=== PATIENT | female | born 1950 | race Caucasian/White ===

== ENCOUNTER → 2023-11-30 09:10 | Outpatient (REF) | payer MEDICARE, OTHER, SELFPAY | LOC: RAD 09:10 | PROVIDERS: ATTENDING PHYSICIAN Surgery Vascular Surgery; FAMILY PHYSICIAN Family Medicine | DX: I73.9 Peripheral vascular disease, unspecified (principal) | CPT/HCPCS: 93922; 93925 ==

== ENCOUNTER → 2024-03-09 06:09 | Outpatient (REF) | payer MEDICARE, OTHER, SELFPAY ==
[2024-03-09 10:29] LABS: % Basophils 0.7 % (0-2); % Eosinophils 0.4 % (0-6); % Immature Granulocytes 0.1 % (0-0.5); % Lymphocytes 35.1 % (20.5-51.1); % Monocytes 6.2 % (1.7-9.3); % Neutrophils 57.5 % (42.2-75.2); Absolute Basophils 0.1 10^3/uL (0-0.2); Absolute Lymphocytes 2.6 10^3/uL (1.2-3.4); Absolute Monocytes 0.5 10^3/uL (0.1-0.6); Absolute Neutrophils 4.3 10^3/uL (1.4-6.5); Hemoglobin 13.5 g/dL (12.0-16.0); Mean Corp Hgb Conc. 32.1 g/dL (33.0-37.0); Mean Corpuscular Hgb 30.5 pg (27.0-31.0); Mean Platelet Volume 9.8 fL (7.4-10.4); Nucleated Red Blood Cells % 0 %; Platelet Count 286 10^3/uL (130-400); Red Blood Cell Count 4.42 10^6/uL (4.20-5.40); Red Cell Dist. Width 12.7 % (11.5-14.5); White Blood Cell Count 7.5 10^3/uL (4.8-10.8)
[2024-03-09 10:50] LABS: ALT (SGPT) 21 U/L (0-35); AST (SGOT) 23 U/L (14-36); Albumin 3.8 g/dl (3.5-5.0); Alkaline Phosphatase 116 U/L (38-126); Blood Urea Nitrogen 19 mg/dl (7-17); Calcium 9.3 mg/dl (8.4-10.2); Carbon Dioxide 25 mmol/L (22-30); Chloride 108 mmol/L (98-107); Glucose 96 mg/dl (70-99); HDL Cholesterol 45 mg/dl; Potassium 4.5 mmol/L (3.5-5.1); Sodium 141 mmol/L (135-145); Total Bilirubin 0.4 mg/dl (0.2-1.3); Total Protein 6.5 g/dl (6.3-8.2); eGFR 59.86
[2024-03-09 11:01] LABS: LDL Cholesterol, Calculated 44 mg/dl; Total Cholesterol 99 mg/dl (50-199); Triglyceride 51 mg/dl (10-149); Very Low Density Lipoprotein 10 mg/dl (0-30)
[2024-03-09 11:08] LABS: TSH Reflex To Free T4 2.51 uIU/ml (0.47-4.68)
[2024-03-09 13:20] LABS: Glycohemoglobin (HgbA1c) 5.4 % (4.0-5.6)
== END ==
LOC: HWLAB 06:09
PROVIDERS: ATTENDING PHYSICIAN Internal Medicine; FAMILY PHYSICIAN Family Medicine
DX: I48.0 Paroxysmal atrial fibrillation (principal); I70.209 Unspecified atherosclerosis of native arteries of extremities, unspecified extremity; I51.3 Intracardiac thrombosis, not elsewhere classified
CPT/HCPCS: 36415; 80053; 80061; 83036; 84443; 85025

== ENCOUNTER 2024-03-20 07:53 | Inpatient (IN) | payer MEDICARE, OTHER, SELFPAY ==
[2024-03-20 08:12] VITALS: BP 142/74; BMI 26.3
[2024-03-20 08:29] VITALS: BMI 26.3
--- NOTE | 2024-03-20 09:22 | W.PN.CD ---
Addendum entered and electronically signed by Manohar Silver MD 03/20/24 17:27:
I saw and examined the patient.
The RECEPTIONIST TELEPHONE OPERATOR's note was reviewed and I agree with the note.
Comment: Here for planned dofetilide. Will not continue Dilt given drug drug interaction and try Metoprolol ER 25 a day and watch her tolerance (COPD). Follow dofetilide protocol.
Original Note:
Today's Communication / Plan
-
Dofetilide loading per protocol after EKG
Impression / Plan
-
Background: 73F with paroxysmal atrial fibrillation status post cardioversion with early recurrence and subsequent ablation (08/2022), hypertension, dyslipidemia, mild to moderate tricuspid regurgitation, PAD s/p LLE thrombectomy for SFA occlusion
(03/2022), and COPD presents for dofetilide loading
Manager Embalmer Funeral Director: Dr. Donato
Paroxysmal atrial fibrillation
-Status post ablation 08/04/2022
-Currently in sinus
-Oral Anticoagulation: Apixaban 5 mg twice daily, she denies missed doses and abnormal bleeding
-[id number]: Score at least 4 (HTN, Vascular disease, age 65-74, female gender)
-Obtain baseline EKG, initiate dofetilide per protocol, QTc requires intensive monitoring
Hypertension, follow with changes in medical therapy
Dyslipidemia, continue atorvastatin
Mild to moderate tricuspid regurgitation, update echocardiogram in the outpatient setting after dofetilide loading
PAD
COPD
Former smoker, continued cessation recommended
Physical Exam
Vital Signs/Labs
Vital Signs
Temp Pulse Resp BP Pulse Ox
97.5 F 83 18 142/74 100
03/20/24 08:12 03/20/24 08:12 03/20/24 08:12 03/20/24 08:12 03/20/24 08:12
03/19/24 03/20/24 03/21/24
06:59 06:59 06:59
Actual Weight 73.9 kg
Physical Exam
Constitutional: No acute distress and Comfortable
EENT: Anicteric and Moist mucous membranes
Cardiovascular: Rhythm & rate is regular and S1S2 is normal
Respiratory: Respiratory effort normal and Lungs clear to auscul.
GI: Soft, Distention absent, Flat, Non tender and Normal bowel sounds
Neuro/Psych: AO x 3
Other: Skin (Warm and dry without edema)
Data Reviewed
-
Date of Service: March 20, 2024
EKG: Report Reviewed by me
Medical Tests (PFT, Pathology etc): Report Reviewed by me
Labs: Labs Reviewed by me
Old Records: Reviewed
--- NOTE | 2024-03-20 09:28 | W.CARD.TIKOS ---
Initiate Tikosyn
-
I verify that the patient has not taken any verapamil (Isoptin/Calan), ketoconazole (Nizoral), cimetidine (Tagamet), trimethoprim (Trimpex), trimethoprim/sulfamethoxazole (Bactrim), megesterol (Megace), prochlorperazine (Compazine),
hydrochlorothiazide (HCTZ), dolutegravir (Tivicay) or any Class I or Class III anti-arrhythmic within the last three days
AND
I verify that the patient has not taken amiodarone within the last THREE months, or that the patient's amiodarone plasma concentration is <0.3 mcg/mL.
Baseline QTc (in msec): 438
QTc interval is greater than 440msec without conduction abnormality OR greater than 500msec with a conduction abnormality, but acceptable to proceed per Cardiology attending.
Ordering Physician: Norberto Donato
[2024-03-20] MEDS: TIKOSYN 250 MCG PO ×2 (11:40→23:06)
[2024-03-20 11:56] VITALS: BP 128/64
--- NOTE | 2024-03-20 12:06 | CM ---
Reviewed chart. Met with Mrs. Lenz to review discharge plans. She states prior to admission she resides with her spouse in a one story home with one step to enter. She states prior to admission she was independent with ambulation and adls. She
states she does not have any DME in the home. She states she has a prescription plan and uses [facility]. Telephone call to Bill Guo ([phone]) to check on co-pay for Dofetilide 250 mcg bid. Her co-pay for one month would be $192.00 and for
three months her co-pay would be $385.11. She has a deductible that has to be met. She can use the Good Rx. Coupon at [facility] for $29.13 a month. Will review with her. Medical work-up in progress. The discharge plan is to return home with her spouse
when medically stable.
--- NOTE | 2024-03-20 12:25 | CM ---
Reviewed chart. Met with Mrs. Lenz to review discharge plans. She states prior to admission she resides with her spouse in a one story home with one step to enter. She states prior to admission she was independent with ambulation and adls. She
states she georges not have any DME in the home. She states she has a prescription plan with Bill Guo and uses [facility]. Telephone call to Bill Guo, ([phone]) to check on co-pay for Dofetilide 250 mcg bid. Her co-pay for a month is $192.00
and for three months mail order is $385.11. She has a deductible that has to be met. She can use the Good Rx, Coupon and her co-pay would be $29.13. a month. Will review with her and check if [facility] has it in stock. Will need a three
script to be sent to [facility] for it to go home with her. Medical work-up in progress. The discharge plan is to return home with her spouse when medically stable.
--- NOTE | 2024-03-20 15:09 | PTCARENOTE ---
Pt received first dose Tikosyn. EKG completed prior to first dose and 2hrs following second dose. Pt ambulating independently around unit. Pt remains SR with HR 60's. BP 128/64 MAP 83. Pulse oximetry 97% on room air.
[2024-03-20 16:16] VITALS: BP 122/61
[2024-03-20] MEDS: TOPROL XL PO (18:00)
[2024-03-20] MEDS: LIPITOR 40 MG PO (18:16)
[2024-03-20 18:37] VITALS: BP 113/67
[2024-03-20 19:39] LABS: Hepatitis C Antibody Negative (Negative)
[2024-03-20] MEDS: ELIQUIS 5 MG PO (19:41)
[2024-03-20 23:09] VITALS: BP 125/68
--- NOTE | 2024-03-21 01:16 | PTCARENOTE ---
Pt received at start of shift, HR SR. Pt OOB walking halls w/ daughter. Updated pt and daughter on plan of care, pt states no questions at this time. Tikosyn dose #2 administered, EKG 2h later: QTc -489. Pt denies any SOb orlightheadedness/dizziness
at this time. Informed to notify RN if any changes. Call carpenter within reach.
[2024-03-21 05:27] VITALS: BP 122/106
[2024-03-21 05:39] VITALS: BMI 26.0
[2024-03-21 07:00] VITALS: BP 132/74
[2024-03-21] MEDS: ELIQUIS 5 MG PO ×2 (07:46→19:12)
[2024-03-21] MEDS: LOW STRENGTH ASPIRIN 81 MG PO (07:46)
[2024-03-21] MEDS: OSCAL 500 + D 1200 MG PO (07:46)
--- NOTE | 2024-03-21 09:09 | W.PN.CD ---
Today's Communication / Plan
-
- Continue Tikosyn loading at a lower dose.
Impression / Plan
-
Background: 73F with paroxysmal atrial fibrillation status post cardioversion with early recurrence and subsequent ablation (08/2022), hypertension, dyslipidemia, mild to moderate tricuspid regurgitation, PAD s/p LLE thrombectomy for SFA occlusion
(03/2022), and COPD presents for dofetilide loading
Shuttle Veneering Supervisor: Dr. Donato
Paroxysmal atrial fibrillation
-Status post ablation 08/04/2022
-Currently in sinus
-Oral Anticoagulation: Apixaban 5 mg twice daily, she denies missed doses and abnormal bleeding
-[id number]: Score at least 4 (HTN, Vascular disease, age 65-74, female gender)
-Obtain baseline EKG, initiate dofetilide per protocol, QTc requires intensive monitoring
Bradycardia
-discontinued Dilt with initiation of Tikosyn
- Low dose toprol started. - still bradycardiac - hold unless needed.
Hypertension, follow with changes in medical therapy
Dyslipidemia, continue atorvastatin
Mild to moderate tricuspid regurgitation, update echocardiogram in the outpatient setting after dofetilide loading
PAD
COPD
Former smoker, continued cessation recommended
Physical Exam
Vital Signs/Labs
Vital Signs
Temp Pulse Resp BP Pulse Ox
97.6 F 78 14 132/74 97
03/21/24 06:59 03/21/24 07:45 03/21/24 06:59 03/21/24 07:00 03/21/24 07:00
03/20/24 03/21/24 03/22/24
06:59 06:59 06:59
Actual Weight 73.1 kg
Physical Exam
Constitutional: No acute distress and Comfortable
EENT: Anicteric and Moist mucous membranes
Cardiovascular: Rhythm & rate is regular, Pedal edema is absent and JVD pressure is normal
Respiratory: Respiratory effort normal, Lungs clear to auscul., Wheeze Absent and Crackles Absent
GI: Soft, Non tender and Normal bowel sounds
Neuro/Psych: Alert, Oriented and AO x 3
Data Reviewed
-
Date of Service: March 21, 2024
Medical Decision Making: Reviewed Test Results, Independent Historian Assessment and Test Interpretation
EKG: Tracing Personally Visualized and interpreted
Echo: Report Reviewed by me
Labs: Labs Reviewed by me
Old Records: Reviewed
[2024-03-21] MEDS: TIKOSYN 250 MCG PO ×2 (10:06→21:09)
[2024-03-21 12:06] VITALS: BP 139/71
--- NOTE | 2024-03-21 12:19 | PTCARENOTE ---
Pt received 3rd dose of Tikosyn, EKG completed 2hrs following. QTc 471. Pt ambulating in jung independently. Pt remains SR with HR 60's-70's. BP 139/71 MAP 90. Pulse oximetry 98% on room air.
--- NOTE | 2024-03-21 12:38 | CM ---
Reviewed chart. Met with and Mrs. Lenz to review discharge plans. Reviewed co-pays with her insurance of $192.00 a month and $385.11 for three month. Also reviewed Good RX coupon at [facility] would be $29.00 a month. Gave her the good Rx coupon.
Telephone call to [facility] to see if Dofetilide 250 m[address] stock[address] [facility] has it in stock. She will need a three day script of Dofetilide to go to [facility] so a three supply can go home with her. Prior to admission she resides with
her spouse in a one story home with one step to enter. Prior to admission she was independent with ambulation and adls. She does not have any DME in the home. Medical work-up in progress. The discharge plan is to return home with her spouse when
medically stable.
[2024-03-21 15:10] VITALS: BP 122/63
[2024-03-21] MEDS: TOPROL XL 25 MG PO (16:54)
[2024-03-21] MEDS: LIPITOR 40 MG PO (16:54)
[2024-03-21 19:17] VITALS: BP 131/75
[2024-03-21 23:05] VITALS: BP 129/70
--- NOTE | 2024-03-21 23:13 | PTCARENOTE ---
Pt received start of shift HR SR w/ PACs. Tikosyn dose #4 given, QTc 499. Pt denies any SOB, CP, lightheadedness, or dizziness at this time. Informed to notify RN if any changes, call carpenter within reach.
[2024-03-22] VITALS (8 sets, daily range): BP systolic 113–165; BP diastolic 64–82; BMI 26.1
--- NOTE | 2024-03-22 08:05 | W.PN.CD ---
Today's Communication / Plan
-
- Continue loading
- Likely discharge in AM
Impression / Plan
-
Background: 73F with paroxysmal atrial fibrillation status post cardioversion with early recurrence and subsequent ablation (08/2022), hypertension, dyslipidemia, mild to moderate tricuspid regurgitation, PAD s/p LLE thrombectomy for SFA occlusion
(03/2022), and COPD presents for dofetilide loading
Spring Machine Operator: Dr. Donato
Paroxysmal atrial fibrillation
-Status post ablation 08/04/2022
-Currently in sinus
-Oral Anticoagulation: Apixaban 5 mg twice daily, she denies missed doses and abnormal bleeding
-[id number]: Score at least 4 (HTN, Vascular disease, age 65-74, female gender)
-Obtain baseline EKG, initiate dofetilide per protocol, QTc requires intensive monitoring
-QTc is 490s this AM - dose # 5 this AM
- With borderline QTc, would like to wait for one more day to evaluate.
- Continue 250 mcg q12h
Bradycardia
-discontinued Dilt with initiation of Tikosyn
- Low dose toprol started. - still bradycardiac - hold unless needed.
Hypertension, follow with changes in medical therapy
Dyslipidemia, continue atorvastatin
Mild to moderate tricuspid regurgitation, update echocardiogram in the outpatient setting after dofetilide loading
PAD
COPD
Former smoker, continued cessation recommended
Physical Exam
Vital Signs/Labs
Vital Signs
Temp Pulse Resp BP Pulse Ox
97.7 F 72 16 127/64 97
03/22/24 06:57 03/22/24 07:00 03/22/24 06:57 03/22/24 06:58 03/22/24 06:57
03/21/24 03/22/24 03/23/24
06:59 06:59 06:59
Actual Weight 73.1 kg 73.2 kg
Physical Exam
Constitutional: No acute distress and Comfortable
EENT: Anicteric and Moist mucous membranes
Cardiovascular: Rhythm & rate is regular, Pedal edema is absent and JVD pressure is normal
Respiratory: Respiratory effort normal, Lungs clear to auscul. and Wheeze Absent
GI: Soft, Non tender and Normal bowel sounds
Neuro/Psych: Alert, Oriented and AO x 3
Data Reviewed
-
Date of Service: March 22, 2024
Medical Decision Making: Reviewed Test Results, Test Interpretation and Review of Case with other Provider
EKG: Tracing Personally Visualized and interpreted
Echo: Report Reviewed by me
Labs: Labs Reviewed by me
Old Records: Reviewed
[2024-03-22] MEDS: ELIQUIS 5 MG PO ×2 (08:31→20:05)
[2024-03-22] MEDS: LOW STRENGTH ASPIRIN 81 MG PO (08:32)
[2024-03-22] MEDS: FLUSH (NSS) 1 FLUSH IV (08:33)
[2024-03-22] MEDS: TIKOSYN 250 MCG PO ×2 (08:33→20:06)
[2024-03-22] MEDS: OSCAL 500 + D 1000 MG PO (09:18)
[2024-03-22] MEDS: OSCAL 500 + D PO (09:18)
--- NOTE | 2024-03-22 10:28 | PTCARENOTE ---
Received patient this morning resting in bed, remains in SR on the monitor. Patient worried that QTc was 499 last night, seen by Dr. Rehman and plan is to watch overnight. Given 5th dose of tikosyn, will check EKG 2 hours post dose.
--- NOTE | 2024-03-22 13:33 | CM ---
Reviewed chart. Met with Mrs. Lenz to review discharge plans. She states she is feeling well and maybe able to go home. We reviewed that we give her a three day supply of Dofetilide to take home with her. Will need to send a script to [facility] for the mediation. Prior to admission she resides with her spouse in one story home with one step to enter. Prior to admission she was independent with ambulation and adls. She georges not have any DME in the home. We reviewed using the Good
RX coupon for her Dofetilide. She has the coupon. Medical work-up in progress. The discharge plan is to return home with her spouse when medically stable.
[2024-03-22] MEDS: LIPITOR 40 MG PO (18:38)
[2024-03-22] MEDS: TOPROL XL 25 MG PO (18:40)
--- NOTE | 2024-03-22 22:16 | PTCARENOTE ---
Pt received at start of shift, HR SR w/ PACs. Pt OOB walking the halls. Once back in room, discussed plan of care w/ pt. Pt states no questions at this time. Tikosyn dose #6 given, QTc 529. Call carpenter within reach.
[2024-03-23 04:38] VITALS: BP 130/70
[2024-03-23 04:40] VITALS: BMI 25.9
[2024-03-23 07:17] VITALS: BP 127/69
[2024-03-23] MEDS: TIKOSYN 250 MCG PO (08:06)
[2024-03-23] MEDS: OSCAL 500 + D 1000 MG PO (08:07)
[2024-03-23] MEDS: ELIQUIS 5 MG PO (08:07)
[2024-03-23] MEDS: LOW STRENGTH ASPIRIN 81 MG PO (08:07)
--- NOTE | 2024-03-23 08:09 | W.PN.CD ---
Today's Communication / Plan
-
- Discharge home
Impression / Plan
-
Background: 73F with paroxysmal atrial fibrillation status post cardioversion with early recurrence and subsequent ablation (08/2022), hypertension, dyslipidemia, mild to moderate tricuspid regurgitation, PAD s/p LLE thrombectomy for SFA occlusion
(03/2022), and COPD presents for dofetilide loading
Community Engagement Representative: Dr. Donato
Paroxysmal atrial fibrillation
-Status post ablation 08/04/2022
-Currently in sinus
-Oral Anticoagulation: Apixaban 5 mg twice daily, she denies missed doses and abnormal bleeding
-[id number]: Score at least 4 (HTN, Vascular disease, age 65-74, female gender)
-Obtain baseline EKG, initiate dofetilide per protocol, QTc requires intensive monitoring
-QTc is 480s this AM - dose # 7 this AM
- Continue 250 mcg q12h
- stable for discharge
Bradycardia
-discontinued Dilt with initiation of Tikosyn
- Low dose toprol started. - still bradycardiac - hold unless needed.
Hypertension, follow with changes in medical therapy
Dyslipidemia, continue atorvastatin
Mild to moderate tricuspid regurgitation, update echocardiogram in the outpatient setting after dofetilide loading
PAD
COPD
Former smoker, continued cessation recommended
Physical Exam
Vital Signs/Labs
Vital Signs
Temp Pulse Resp BP Pulse Ox
98.5 F 73 20 127/69 97
03/23/24 07:17 03/23/24 07:30 03/23/24 07:17 03/23/24 07:17 03/23/24 07:17
03/22/24 03/23/24 03/24/24
06:59 06:59 06:59
Actual Weight 73.2 kg 72.7 kg
Physical Exam
Constitutional: No acute distress and Comfortable
EENT: Anicteric and Moist mucous membranes
Cardiovascular: Rhythm & rate is regular, Pedal edema is absent, JVD pressure is normal and Systolic murmur present
Respiratory: Respiratory effort normal, Lungs clear to auscul. and Wheeze Absent
GI: Soft, Non tender and Normal bowel sounds
Neuro/Psych: Alert, Oriented and AO x 3
Data Reviewed
-
Date of Service: March 23, 2024
Medical Decision Making: Reviewed Test Results, Independent Historian Assessment, Test Interpretation and Review of Case with other Provider
EKG: Tracing Personally Visualized and interpreted
Echo: Report Reviewed by me
Labs: Labs Reviewed by me
Old Records: Reviewed
--- NOTE | 2024-03-23 13:46 | W.DS.TRANS ---
DC Summary - Kennel Staff Member
-
Discharge Instructions:
Discharge Diagnosis/Procedures Atrial fibrillation, dofetilide initiation
Diet Low Fat,Low Cholesterol,Low Sodium
Activity As tolerated
Driving Restrictions As prior to admission
Bathing Restrictions None
Instructions:
Stand-Alone Forms:
Changes to Home Medications: Yes
Discharge Medications:
DC Medications w/original date entered in [facility]
apixaban 5 mg tablet (Eliquis) 5 mg PO BID #60 tabs 04/01/22
atorvastatin 40 mg tablet 40 mg PO QPM #30 tabs 04/01/22
calcium carbonate 600 mg-vitamin D3 5 mcg (200 unit) tablet 2 tab PO DAILY Supplement 07/28/22
aspirin 81 mg capsule 81 mg PO DAILY Blood Clot Prevention/Tx 03/20/24
dofetilide 250 mcg capsule 250 mcg PO Q12H #60 caps 03/23/24
metoprolol succinate 25 mg tablet,extended release 24 hr 25 mg PO QPM #30 tabs 03/23/24
Home Medication Changes
stop diltiazem, start metoprolol and dofetilide
Pending Results: No
== END 2024-03-23 16:29 | disposition home or self-care (01) | DRG 310 ==
LOC: IVU 07:53
PROVIDERS: ADMITTING PHYSICIAN Internal Medicine; FAMILY PHYSICIAN Family Medicine
DX: I48.0 Paroxysmal atrial fibrillation (principal); I10 Essential (primary) hypertension; I70.202 Unspecified atherosclerosis of native arteries of extremities, left leg; J44.9 Chronic obstructive pulmonary disease, unspecified; E78.2 Mixed hyperlipidemia; I36.1 Nonrheumatic tricuspid (valve) insufficiency; R00.1 Bradycardia, unspecified; Z79.01 Long term (current) use of anticoagulants; Z79.82 Long term (current) use of aspirin; Z79.899 Other long term (current) drug therapy; Z87.891 Personal history of nicotine dependence
CPT/HCPCS: 86803; 93005

== ENCOUNTER → 2024-05-03 12:49 | Outpatient (REF) | payer MEDICARE, OTHER, SELFPAY | LOC: HWRCS 12:49 | PROVIDERS: ATTENDING PHYSICIAN Nurse Practitioner; FAMILY PHYSICIAN Family Medicine | DX: I48.0 Paroxysmal atrial fibrillation (principal); R06.09 Other forms of dyspnea; I10 Essential (primary) hypertension | CPT/HCPCS: 93306 ==

== ENCOUNTER → 2024-07-11 08:43 | Outpatient (REF) | payer MEDICARE, OTHER, SELFPAY | LOC: HWWDC 08:43 | PROVIDERS: ATTENDING PHYSICIAN Family Medicine | DX: Z12.31 Encounter for screening mammogram for malignant neoplasm of breast (principal) | CPT/HCPCS: 77063; 77067 ==

== ENCOUNTER → 2024-07-18 08:21 | Outpatient (REF) | payer MEDICARE, OTHER, SELFPAY | LOC: WDC 08:21 | PROVIDERS: ATTENDING PHYSICIAN Family Medicine | DX: R92.8 Other abnormal and inconclusive findings on diagnostic imaging of breast (principal) | CPT/HCPCS: 76642 ==

== ENCOUNTER → 2024-07-24 08:23 | Outpatient (REF) | payer MEDICARE, OTHER, SELFPAY ==
--- NOTE | 2024-07-24 13:38 | OID.BR.INTR ---
BETHANYD Breast Navigator - Initial
- -
Date of Contact: 07/24/24
Met with patient. Patient given written information on navigator services available at [facility] [address]. Will follow up as needed per protocol.
== END ==
LOC: WDC 08:23
PROVIDERS: ATTENDING PHYSICIAN Family Medicine
DX: N63.22 Unspecified lump in the left breast, upper inner quadrant (principal)
CPT/HCPCS: 88305; 19083; 88341; 88342; 88360; A4648

== ENCOUNTER → 2024-08-01 12:45 | Outpatient (REF) | payer MEDICARE, OTHER, SELFPAY | LOC: WDC 12:45 | PROVIDERS: ATTENDING PHYSICIAN Surgery; FAMILY PHYSICIAN Family Medicine | DX: R92.2 Inconclusive mammogram (principal) | CPT/HCPCS: 76641 ==

== ENCOUNTER → 2024-08-17 08:17 | Outpatient (REF) | payer MEDICARE, OTHER, SELFPAY | LOC: WDC 08:17 | PROVIDERS: ATTENDING PHYSICIAN Surgery | DX: C50.412 Malignant neoplasm of upper-outer quadrant of left female breast (principal) | CPT/HCPCS: 19285; 38792; 76942; A4648; A9541 ==

== ENCOUNTER 2024-08-18 06:38 | Day surgery (SDC) | payer MEDICARE, OTHER, SELFPAY ==
[2024-08-04 09:40] VITALS: BMI 26.7
[2024-08-18] VITALS (9 sets, daily range): BP systolic 119–167; BP diastolic 69–88; BMI 26.7
[2024-08-18] MEDS: TYLENOL 1000 MG PO (11:34)
--- NOTE | 2024-08-18 12:03 | TRANSFER ---
Pt transported to [facility] by staff at 11:45 for wire placement.
[2024-08-18] MEDS: LOVENOX 40 MG SC (12:31)
--- NOTE | 2024-08-18 14:51 | W.IMMPOSTOP ---
Surgical Immed Post Op Note
-
Primary Surgeon: Huong
Assisting Surgeon: None
Pre-op Diagnosis: Left breast ca
Post-op Diagnosis: Same
Procedure Performed: Left localized lumpectomy, sentinel lymph node mapping and biopsy
Anesthesia Type: MAC
Specimen / Cultures: Left lumpectomy, margins, sentinel node
Estimated Blood Loss: 6cc
Complications: None
Operative Findings: Neg frozen section on sentinel node
== END 2024-08-18 16:33 | disposition home or self-care (01) ==
LOC: SDS 06:38
PROVIDERS: ATTENDING PHYSICIAN Surgery; FAMILY PHYSICIAN Family Medicine
DX: C50.912 Malignant neoplasm of unspecified site of left female breast (principal); N60.12 Diffuse cystic mastopathy of left breast; Z17.0 Estrogen receptor positive status [ER+]
CPT/HCPCS: 38525; 19301; 38900; 88305; 88307; 88332; 19285; 76098; 88331; 88333; 88342; A4648

== ENCOUNTER → 2024-10-17 13:06 | Outpatient (REF) | payer MEDICARE, OTHER, SELFPAY | LOC: HWRAD 13:06 | PROVIDERS: ATTENDING PHYSICIAN Internal Medicine Hematology & Oncology; FAMILY PHYSICIAN Family Medicine | DX: C50.312 Malignant neoplasm of lower-inner quadrant of left female breast (principal); Z78.0 Asymptomatic menopausal state | CPT/HCPCS: 77080 ==

== ENCOUNTER → 2024-12-05 08:53 | Outpatient (REF) | payer MEDICARE, OTHER, SELFPAY | LOC: RAD 08:53 | PROVIDERS: ATTENDING PHYSICIAN Surgery Vascular Surgery | DX: I73.9 Peripheral vascular disease, unspecified (principal) | CPT/HCPCS: 93922; 93925 ==

== ENCOUNTER → 2025-02-06 07:25 | Outpatient (REF) | payer MEDICARE, OTHER, SELFPAY | LOC: HWRCS 07:25 | PROVIDERS: ATTENDING PHYSICIAN Internal Medicine; FAMILY PHYSICIAN Family Medicine | DX: R07.9 Chest pain, unspecified (principal) | CPT/HCPCS: 78452; 93017; A9500; J2785 ==

== ENCOUNTER → 2025-07-12 13:34 | Outpatient (REF) | payer MEDICARE, OTHER, SELFPAY | LOC: WDC 13:34 | PROVIDERS: ATTENDING PHYSICIAN Family Medicine Geriatric Medicine; FAMILY PHYSICIAN Nurse Practitioner Family | DX: Z12.31 Encounter for screening mammogram for malignant neoplasm of breast (principal) | CPT/HCPCS: 77063; 77067 ==

== ENCOUNTER → 2025-07-26 06:12 | Outpatient (REF) | payer MEDICARE, OTHER, SELFPAY ==
[2025-07-26 09:29] LABS: Hematocrit 40.2 % (37.0-47.0); Hemoglobin 13.3 g/dL (12.0-16.0); Mean Corp Hgb Conc. 33.1 g/dL (33.0-37.0); Mean Corpuscular Volume 93.9 fL (81.0-99.0); Platelet Count 239 10^3/uL (130-400); Red Cell Dist. Width 12.6 % (11.5-14.5)
[2025-07-26 10:29] LABS: ALT (SGPT) 20 U/L (0-35); AST (SGOT) 24 U/L (14-36); Albumin 4.1 g/dl (3.5-5.0); Alkaline Phosphatase 118 U/L (38-126); Blood Urea Nitrogen 17 mg/dl (7-17); Calcium 9.4 mg/dl (8.4-10.2); Carbon Dioxide 28 mmol/L (22-30); Chloride 108 mmol/L (98-107); Glucose 92 mg/dl (70-99); HDL Cholesterol 45 mg/dl; LDL Cholesterol, Calculated 46 mg/dl; Potassium 4.3 mmol/L (3.5-5.1); Sodium 142 mmol/L (135-145); Total Protein 6.9 g/dl (6.3-8.2); Very Low Density Lipoprotein 9 mg/dl (0-30); eGFR > 60.00
[2025-07-26 10:56] LABS: Vitamin D, 25-OH*** 42.5 ng/mL (30-80)
[2025-07-26 11:14] LABS: Ferritin 67.1 ng/ml (11.1-264.0)
[2025-07-26 11:29] LABS: Vitamin B12 515 pg/ml (239-931)
[2025-07-26 11:48] LABS: Glycohemoglobin (HgbA1c) 5.3 % (4.0-5.6)
== END ==
LOC: HWLAB 06:12
PROVIDERS: ATTENDING PHYSICIAN Nurse Practitioner Family
DX: E78.2 Mixed hyperlipidemia (principal); Z13.21 Encounter for screening for nutritional disorder; Z13.29 Encounter for screening for other suspected endocrine disorder; I48.91 Unspecified atrial fibrillation; I10 Essential (primary) hypertension; M89.9 Disorder of bone, unspecified
CPT/HCPCS: 36415; 80053; 80061; 82306; 82607; 82728; 83036; 84443; 85027

== ENCOUNTER → 2025-08-14 09:49 | Outpatient (REF) | payer MEDICARE, OTHER, SELFPAY | LOC: WDC 09:49 | PROVIDERS: ATTENDING PHYSICIAN Family Medicine Geriatric Medicine; FAMILY PHYSICIAN Nurse Practitioner Family | DX: R92.2 Inconclusive mammogram (principal); R92.333 Mammographic heterogeneous density, bilateral breasts; Z12.39 Encounter for other screening for malignant neoplasm of breast | CPT/HCPCS: 76641 ==